=== PATIENT | female | born 1990 | race Caucasian/White ===

== ENCOUNTER 2017-04-28 20:10 | Emergency (ER) | payer SELFPAY ==
[2017-04-28 20:15] VITALS: BP 111/73; BMI 20.5
[2017-04-28] MEDS ORDERED: ZOFRAN TAB 4 MG PO STA (22:03)
--- NOTE | 2017-04-28 22:19 | DR.GENAD ---
HPI - Complaint/Symptoms Chief Complaint Doctors Comments: Patient complains of cold, cough, body aches for the past two days with diarrhea, nasusea, with vomiting today. states she is breast feeding and is wondering if her baby is going to cath the same thing. States her last period was Jul 2016. States she took a Depro shot August 2016 but has had irregular periods with dysuria. States she smokes one pack daily. She denies any unsual foods. States she had diarrhea earlier today but it is improving. Chief Complaint:: PT STATES THAT SHE HAS HAD A BAD COUGH FOR A COUPLE OF DAYS. TODAY SHE BEGAN HAVING CHILLS, FEVER, BODYACHES. COUGHING SO MUCH IT IS MAKING HER VOMIT - Nurses notes reviewed Nurses Notes Review: Yes - Source History Provided: Patient - Mode of Arrival Mode of Arrival: Ambulatory - Timing Onset of Chief Complaint: 04/26/17 Came on: Gradually - Duration Duration: Constant How lon Duration: Days - Location Location: diffuse body aches - Severity Severity: Mild - Modifying Factors Worsens:: nothing Improves:: nothing PMH - PMH Past Medical History: No Past Surgical History: Yes Surgical History: Cholecystectomy, Tonsillectomy - Family History History of Family Medical Conditions: Yes Family Medical History: DC, Hypertension - Social History Do you use any recreational Drugs:: No - infectious screening Have you traveled outside the country in the last 6 months?: No ROS - Review of Systems Constitutional: No Symptoms Reported, Chills, Fever, Malaise, Weakness, Loss of Appetite Eyes: No Symptoms Reported. negative: See HPI, Eye Pain, Blurred Vision, Tearing, Discharge, Photophobia, Diplopia, Other ENTM: No Symptoms Reported, Nose Congestion. negative: See HPI, Ear Pain, Ear Discharge, Pulling on Ears, Hearing Loss, Nose Pain, Nose Discharge, Epistaxis, Mouth Pain, Mouth Swelling, Loose Teeth, Drooling, Throat Pain, Throat Swelling , Ear Foreign Body Respiratoy: No Symptoms Reported, Non-Productive Cough. negative: See HPI, Productive Cough, Moist Cough, Dry Cough, Hacking Cough, Barking Cough, Brassy Cough, Orthopnea, Short of Breath, Stridor, Wheezing, Hemoptysis, Other Cardiovascular: No Symptoms Reported. negative: See HPI, Chest Pain, Edema, Palpitations, Syncope, Cyanosis, Skin Mottling, Other Gastrointestinal/Abdominal: No Symptoms Reported, Abdominal Pain, Diarrhea, Nausea, Vomiting. negative: See HPI, Constipation, Food Intolerance, Other Genitourinary: No Symptoms Reported, Dysuria, Frequency. negative: See HPI, Discharge, Hematuria, Pain, Bleeding, Other Neurological: No Symptoms Reported. negative: See HPI, Anxiety, Depressed, Emotional Problems, Headache, Numbness, Paresthesia, Pre-existing Deficit, Seizure, Tingling, Tremors, Weakness, Dizziness, Problems Walking, Speech Problem, Other Musculoskeletal: No Symptoms Reported Integumentary: No Symptoms Reported. negative: See HPI, Change in Color, Change in Hair/Nails, Dryness, Lesions, Lumps, Rash, Itching, Wound, Bruises, Juandice, Other Hematologic/Lymphatic: No Symptoms Reported Endocrine: No Symptoms Reported. negative: See HPI, Excessive Sweating, Flushing, Intolerance to Cold, Intolerance to Heat, Increased Hunger, Increased Thirst, Increased Urine, Unexplained Weight Gain, Unexplained Weight Loss, Failure to Thrive, Decreased Appetite, Other Psychiatric: No Symptoms Reported. negative: See HPI, Anxiety, Depression, Hallucinations, Excessive crying, Suicidal, Other PE - Vital Signs Vitals: Temperature 97.8 F Pulse Rate 100 Respiratory Rate 18 Blood Pressure [Right Arm] 120/55 Blood Pressure [Left Arm] 113/57 Blood Pressure 111/73 O2 Sat by Pulse Oximetry 98 - General Limitations: No Limitations General Appearance: Alert, In Distress (mild). negative: In No Apparent Distress, Appears Intoxicated, Anxious, Lethargic, Obtunded, Obese, Cachectic, Other - Head Head Exam: Normal Inspection, Atraumatic, Normocephalic - Eyes Eye exam: Normal Appearance, PERRL, EOMI. negative: Scleral Icterus, Conjunctival Injection, Nystagmus, Miosis, Mydrasis, Periorbital Swelling, Periorbital Tenderness, Other - ENT ENT Exam: Normal Exam, Normal Oropharynx, Normal External Ear Exam, Mucous Membranes Moist, TM's Normal Bilaterally External Ear Exam: Normal External Inspection TM/Canal Exam: Bilateral Normal Nose Exam: Normal Nose Exam Mouth Exam: Normal Inspection Throat Exam: Normal Inspection. negative: Tonsillar Erythema, Tonsillomegaly, Tonsillar Exudate, R Peritonsillar Mass, L Peritonsillar Mass, Muffled Voice, Other - Neck Neck Exam: Normal Inspection, Full ROM, Trachea Midline. negative: Tenderness, Meningismus, Lymphadenopathy, Thyromegaly, Other - Chest Chest Inspection: Normal Inspection, Symmetric Chest Wall Rise. negative: Tenderness, Rash, Abscess, Other - Respiratory Respiratory Exam: Normal Lung Sounds Bilat. negative: Accessory Muscle Use, Chest Wall Tenderness, Prolonged Expiratory Phase, Respiratory Distress, Stridor , Other Respiratory Exam: Bilateral Clear to Auscultation - Cardiovascular Cardiovascular Exam: Regular Rate, Normal Rhythm. negative: Bradycardia, Tachycardia, Irregular Rhythm, Normal Heart Sounds, Systolic Murmur, Diastolic Murmur, Rubs, Gallop, Clicks, JVD, +S1, +S2, +S3, +S4, Other - Abdominal Exam Abdominal Exam: Normal Inspection, Normal Bowel Sounds, Soft, Tenderness ( slight suprapubic tenderness). negative: Distention, Guarding, Rebound, Rigidity, Dimnished Bowel Sounds, Hyperactive Bowel Sounds, Hypoactive Bowel Sounds, Organomegaly, Trauma, Incision, Ascites, Mass, Bruit, Pulsatile Mass, Hernia, Other Abdominal Tenderness: Suprapubic, Mild - Extremities Extremities Exam: Normal Inspection, Full ROM, Tenderness, Normal Capillary Refill - Back Back Exam: Normal Inspection, Full ROM. negative: Tenderness, (R) CVA Tenderness, (L) CVA Tenderness, Muscle Spasm, Paraspinal Tenderness, Vertebral Tenderness, Rashes, (R) Sciatic Notch Tenderness, (L) Sciatic Notch Tendern, (R ) Straight Leg Raise, (L) Straight Leg Raise, Other - Neurologic Neurological Exam: Alert, Oriented X3, CN II-XII Intact, Normal Gait, Reflexes Normal - Psychiatric Psychiatric Exam: Normal Affect, Normal Mood - Skin Skin Exam: Warm, Dry, Intact, Normal Color ROR - Labs Reviewed Laboratory Results Reviewed?: Yes (all labs and x-ray results reviewed and discussed with patient) Laboratory: HCG, Qual Negative <10 mIU/mL 04/28/17 22:15 Specimen Type Clean catch urine 04/28/17 22:58 Urine Color Yellow (YELLOW) 04/28/17 22:58 Urine Appearance Clear (CLEAR) 04/28/17 22:58 Urine pH 5.0 (5.0 - 8.0) 04/28/17 22:58 Ur Specific Louann 1.015 (1.000-1.030) 04/28/17 22:58 Urine Protein 1+ (NEGATIVE) 04/28/17 22:58 Urine Glucose (UA) Negative (NEGATIVE) 04/28/17 22:58 Urine Ketones Negative (NEGATIVE) 04/28/17 22:58 Urine Occult Blood Negative (NEGATIVE) 04/28/17 22:58 Urine Nitrite Negative (NEGATIVE) 04/28/17 22:58 Urine Bilirubin 1+ (NEGATIVE) 04/28/17 22:58 Urine Urobilinogen Normal (NORMAL) 04/28/17 22:58 Ur Leukocyte Esterase 1+ (NEGATIVE) 04/28/17 22:58 Urine RBC 0-3 /HPF (NEGATIVE) 04/28/17 22:58 Urine WBC 2-6 /HPF (NEGATIVE) 04/28/17 22:58 Ur Squamous Epith Cells Numerous /HPF (NEGATIVE) 04/28/17 22:58 Urine Bacteria Trace /HPF (NEGATIVE) 04/28/17 22:58 Urine Mucus Moderate /HPF (NEGATIVE) 04/28/17 22:58 Ur Culture Indicated? No/not indicated 04/28/17 22:58 Influenza Type A (PCR) Negative (NEGATIVE) 04/28/17 23:23 Influenza Type B (PCR) Negative (NEGATIVE) 04/28/17 23:23 - Diagnosis Discharge Problem: Gastroenteritis, Bronchitis, Sinusitis - Discharge Plan Disposition: 01 HOME, SELF-CARE Condition: Stable Prescriptions: Cephalexin [KEFLEX CAP 500 MG *] 500 mg PO TID #30 cap Loratadine [Claritin] 10 mg PO DAILY #30 tab Ondansetron HCl [Zofran Tab 4 mg] 4 mg PO Q8H PRN #18 tab PRN Reason: Nausea/Vomiting - Follow ups/Referrals Follow ups/Referrals: CARLA SLATER [Primary Care Provider] - 3 days - Instructions Instructions: Viral Gastroenteritis, Adult, [id number], Sinusitis, Adult, [id number]
[2017-04-28 22:33] LABS: SERUM PREGNANCY TEST, QUAL NEGATIVE <10 mIU/mL
[2017-04-28] MEDS ORDERED: ZOFRAN TAB 4 MG ONE (22:46)
[2017-04-28 23:10] LABS: BILIRUBIN,URINE 1+ (NEGATIVE); BLOOD/HEMOGLOBIN,URINE NEGATIVE (NEGATIVE); GLUCOSE, URINE NEGATIVE (NEGATIVE); KETONES,URINE NEGATIVE (NEGATIVE); LEUKOCYTE ESTERASE ,URINE 1+ (NEGATIVE); NITRITES,URINE NEGATIVE (NEGATIVE); PROTEIN,URINE 1+ (NEGATIVE); UROBILINOGEN,URINE NORMAL (NORMAL)
[2017-04-28] MEDS ORDERED: KEFLEX CAP 500 MG PO ONE ×2 (23:21→23:27)
[2017-04-28 23:22] LABS: APPEARANCE,URINE CLEAR (CLEAR); BACTERIA,URINE TRACE /HPF (NEGATIVE); COLOR,URINE YELLOW (YELLOW); MUCUS,URINE MODERATE /HPF (NEGATIVE); RBC,URINE 0-3 /HPF (NEGATIVE); SQUAMOUS EPITHELIAL CELL,UR NUMEROUS /HPF (NEGATIVE)
== END 2017-04-29 00:26 | disposition home or self-care (01) ==
LOC: ER 20:30
DX: J40 Bronchitis, not specified as acute or chronic (principal); K52.89 Other specified noninfective gastroenteritis and colitis; J32.9 Chronic sinusitis, unspecified
CPT/HCPCS: 36415; 81001; 84703; 87502; 99282; 99283; S0181

== ENCOUNTER 2018-05-08 16:10 | Inpatient (IN) ==
[2018-05-08 16:20] VITALS: BMI 24.8
[2018-05-08 16:22] LABS: BILIRUBIN,URINE NEGATIVE (NEGATIVE); BLOOD/HEMOGLOBIN,URINE 1+ (NEGATIVE); GLUCOSE, URINE NEGATIVE (NEGATIVE); KETONES,URINE NEGATIVE (NEGATIVE); LEUKOCYTE ESTERASE ,URINE 1+ (NEGATIVE); NITRITES,URINE NEGATIVE (NEGATIVE); PROTEIN,URINE NEGATIVE (NEGATIVE); UROBILINOGEN,URINE NORMAL (NORMAL)
[2018-05-08 16:26] LABS: APPEARANCE,URINE SLIGHTLY HAZY (CLEAR); COLOR,URINE YELLOW (YELLOW); RBC,URINE 0-2 /HPF (NONE SEEN); SQUAMOUS EPITHELIAL CELL,UR MANY /HPF (NEGATIVE)
[2018-05-08 16:27] LABS: BACTERIA,URINE 1+ /HPF (NEGATIVE)
[2018-05-08] MEDS ORDERED: DILAUDID INJ IVP PRN (16:35)
[2018-05-08] MEDS ORDERED: PHENERGAN INJ 25 MG IV PRN ×2 (16:35→18:28)
[2018-05-08] MEDS ORDERED: PITOCIN IVP ONE (16:35)
[2018-05-08] MEDS ORDERED: NUBAIN INJ 200 MG VIAL MULTIDOSE IVP PRN (16:35)
[2018-05-08] MEDS ORDERED: D5LR 1L W PITOCIN 10 UNITS/L 10 UNITS/1,000 ML BAG IV PRN (16:35)
[2018-05-08] MEDS ORDERED: REGLAN INJ 10 MG VIAL IVP PRN (16:35)
[2018-05-08] MEDS ORDERED: XYLOCAINE 1 % (PLAIN) ONE (16:48)
[2018-05-08] MEDS ORDERED: NS 100 ML IV 100 ML IV ONE (16:48)
[2018-05-08] MEDS ORDERED: AMPICILLIN VIAL 2 GRAM ONE (16:48)
[2018-05-08] MEDS ORDERED: LR 1000 ML IV 1,000 ML IV ONE (16:48)
[2018-05-08] MEDS ORDERED: FENTANYL INJ 100 mcg ONE (16:48)
[2018-05-08] MEDS ORDERED: XYLOCAINE-MPF 1% ONE (16:49)
[2018-05-08] MEDS ORDERED: NAROPIN EPIDURAL 0.2% + FENTANYL 90MCG 60 ML EPI ONE (16:49)
[2018-05-08] MEDS ORDERED: ADRENALINE CHL INJ ONE (16:49)
[2018-05-08] MEDS ORDERED: D5 1/2 NS 1L W PITOCIN 20 UNITS/L 20 UNITS/1,000 ML BAG IV ONE (16:49)
[2018-05-08] MEDS ORDERED: AMPICILLIN VIAL 2 GRAM 2 G in NS 100 ML IV + SPIKE MINIBAG* 100 ML IV SCH (17:00)
[2018-05-08] MEDS ORDERED: D5 1/2 NS 1000 ML 1,000 ML IV SCH (17:00)
[2018-05-08 17:06] LABS: BASOPHILS % (AUTO) 0.3 % (0.2-1.0); EOSINOPHILS # (AUTO) 0.1 x10^3/uL (0.0-0.2); EOSINOPHILS % (AUTO) 0.7 % (0.9-2.9); HEMATOCRIT 33.8 % (36.0-47.0); HEMOGLOBIN 11.5 g/dL (12.0-16.0); LYMPHOCYTES # (AUTO) 2.1 X10^3/uL (1.3-2.9); LYMPHOCYTES % (AUTO) 16.2 % (21.0-51.0); MEAN CORPUSCULAR HEMOGLOBIN 30.5 pg (27.0-34.0); MEAN CORPUSCULAR HGB CONC 33.9 g/dL (33.0-35.0); MEAN PLATELET VOLUME 8.3 fL (7.4-11.0); MONOCYTES # (AUTO) 0.6 x10^3/uL (0.3-0.8); MONOCYTES % (AUTO) 4.8 % (0.0-13.0); NEUTROPHILS # (AUTO) 10.1 x10^3/uL (2.2-4.8); PLATELET COUNT 200 X10^3/uL (150.0-450.0); RED BLOOD COUNT 3.76 X10^6/uL (3.5-5.4); RED CELL DISTRIBUTION WIDTH 13.3 % (11.6-16.5); WHITE BLOOD COUNT 12.9 X10^3/uL (3.6-10.0)
[2018-05-08 17:09] LABS: BLOOD UREA NITROGEN 5 mg/dL (7-18); CALCIUM 7.9 mg/dL (8.5-10.1); CARBON DIOXIDE 23.7 mmol/L (21-32); CHLORIDE 103 mmol/L (98-107); CREATININE 0.44 mg/dL (0.55-1.02); SODIUM 135 mmol/L (136-145); eGFR NON BLACK RACES > 60 (>60)
[2018-05-08] MEDS ORDERED: D5LR 1L W PITOCIN 10 UNITS/L 10 UNITS/1,000 ML BAG IV ONE (17:28)
--- NOTE | 2018-05-08 18:28 | DR.OB ---
OB Quick Note - Assessment/Plan Assessment/Plan: Delivery Note KNITTING TEACHER 05/08/18 at 6:15pm Patient complete and pushing. Head delivered over intact perineum. No nuchal cord. Nose and mouth bulb suctioned. Body delivered over intact perineum. Cord clamped x 2 and cut. Infant handed to attendant. Cord sent for gases. Placenta delivered spontaneously / intact / 3 vessel cord. No CVX / vaginal / perineal tears. Viable female infant, VTX/OP, wt=5'10" and 9/9, stable to NBN. Mother stable to RR. [id number].
[2018-05-08] MEDS ORDERED: MILK OF MAGNESIA PO PRN (20:14)
[2018-05-08] MEDS ORDERED: DERMOPLAST SPRAY TOP PRN (20:14)
[2018-05-08] MEDS ORDERED: AMBIEN PO PRN (20:14)
[2018-05-08] MEDS ORDERED: ADACEL or BOOSTRIX TDaP VACCINE IM ONE (20:14)
[2018-05-08] MEDS ORDERED: AMPICILLIN VIAL 1 GRAM 1 G in NS 50 ML IV + SPIKE MINIBAG* 50 ML IV SCH (20:37)
[2018-05-08] MEDS: ZANTAC PO SCH (22:13)
[2018-05-08] MEDS: D5 1/2 NS 1000 ML 1,000 ML with PITOCIN 20 UNITS IV SCH ×2 (22:14)
[2018-05-08] MEDS: MOTRIN TAB 800 MG PO PRN (23:34)
[2018-05-09] MEDS: D5 1/2 NS 1000 ML 1,000 ML with PITOCIN 20 UNITS IV SCH ×4 (04:54→11:05)
[2018-05-09 05:16] LABS: HEMATOCRIT 29.1 % (36.0-47.0); HEMOGLOBIN 9.8 g/dL (12.0-16.0)
[2018-05-09] MEDS: PRENATAL PLUS PO SCH (09:30)
[2018-05-09] MEDS: FERROUS GLUCONATE PO SCH ×2 (09:30→17:00)
[2018-05-09] MEDS: ZANTAC PO SCH ×2 (11:02→21:29)
[2018-05-09] MEDS: MOTRIN TAB 800 MG PO PRN (15:40)
[2018-05-10] MEDS: FERROUS GLUCONATE PO SCH (06:12)
[2018-05-10] MEDS ORDERED: DEPO-PROVERA CONTRACEPTIVE INJ IM ONE (07:23)
[2018-05-10 08:31] VITALS: BP 106/37
[2018-05-10] MEDS: PRENATAL PLUS PO SCH (09:00)
[2018-05-10] MEDS: ZANTAC PO SCH (09:01)
== END 2018-05-10 11:05 | disposition home or self-care (01) | DRG 805 ==
LOC: ER 16:10 → LD 16:31 → MED/SURG 20:33
PROVIDERS: ADMIT Specialist; ATTEND Specialist
CPT/HCPCS: 36415; 59409; 76815; 80048; 81001; 85014; 85018; 85025; 86592; 86850; 86900; 86901; 99284; A4216; A4222; S0197; J0171; J0290; J1050; J2590; J3010; J7050; J7120; S5010

== ENCOUNTER 2022-05-20 00:27 | Inpatient (IN) ==
[2022-05-20 01:05] VITALS: BMI 28.3
[2022-05-20 01:17] LABS: BILIRUBIN,URINE NEGATIVE (NEGATIVE); BLOOD/HEMOGLOBIN,URINE 2+ (NEGATIVE); GLUCOSE, URINE NEGATIVE (NEGATIVE); KETONES,URINE NEGATIVE (NEGATIVE); LEUKOCYTE ESTERASE ,URINE 3+ (NEGATIVE); NITRITES,URINE NEGATIVE (NEGATIVE); PROTEIN,URINE NEGATIVE (NEGATIVE); UROBILINOGEN,URINE NORMAL (NORMAL)
[2022-05-20 01:19] LABS: APPEARANCE,URINE SLIGHTLY HAZY (CLEAR); COLOR,URINE YELLOW (YELLOW)
[2022-05-20 01:29] LABS: BACTERIA,URINE TRACE /HPF (NEGATIVE); SQUAMOUS EPITHELIAL CELL,UR FEW /HPF (NEGATIVE); TRANSITIONAL EPI CELLS,URINE FEW /HPF (NEGATIVE)
[2022-05-20 01:58] LABS: EOSINOPHILS # (AUTO) 0.1 x10^3/uL (0.0-0.2); HEMOGLOBIN 8.9 g/dL (12.0-16.0); MEAN CORPUSCULAR HEMOGLOBIN 25.7 pg (27.0-34.0); MEAN CORPUSCULAR HGB CONC 33.3 g/dL (33.0-35.0); MEAN CORPUSCULAR VOLUME 77.1 fL (80.0-100.0); MONOCYTES # (AUTO) 0.6 x10^3/uL (0.3-0.8); RED CELL DISTRIBUTION WIDTH 15.4 % (11.6-16.5); WHITE BLOOD COUNT 11.8 X10^3/uL (3.6-10.0)
[2022-05-20 02:01] LABS: BASOPHILS % (AUTO) 0.4 % (0.2-1.0); EOSINOPHILS % (AUTO) 1.1 % (0.9-2.9); HEMATOCRIT 26.6 % (36.0-47.0); LYMPHOCYTES # (AUTO) 2.4 X10^3/uL (1.3-2.9); LYMPHOCYTES % (AUTO) 20.6 % (21.0-51.0); MEAN PLATELET VOLUME 8.5 fL (7.4-11.0); MONOCYTES % (AUTO) 5.3 % (0.0-13.0); NEUTROPHILS # (AUTO) 8.6 x10^3/uL (2.2-4.8); NEUTROPHILS % (AUTO) 72.6 % (42.0-75.0); RED BLOOD COUNT 3.45 X10^6/uL (3.5-5.4)
[2022-05-20 02:09] LABS: ALANINE AMINOTRANSFERASE 9 Units/L (12-78); ALBUMIN 2.5 g/dL (3.4-5.0); ALKALINE PHOSPHATASE 184 Units/L (46-116); ASPARTATE AMINO TRANSFERASE 12 Units/L (15-37); BLOOD UREA NITROGEN 8 mg/dL (7-18); CALCIUM 8.2 mg/dL (8.5-10.1); CARBON DIOXIDE 24.8 mmol/L (21-32); CHLORIDE 103 mmol/L (98-107); COR CA(FOR HYPOALB) 9.4 mg/dL (8.5-10.1); CREATININE 0.58 mg/dL (0.55-1.02); SODIUM 138 mmol/L (136-145); TOTAL PROTEIN 6.3 g/dL (6.4-8.2); eGFR NON BLACK RACES > 60 (>60)
[2022-05-20] MEDS ORDERED: D5 LR + PITOCIN 10 UNITS/L 10 UNITS/1,000 ML BAG IV PRN (02:16)
[2022-05-20] MEDS ORDERED: PITOCIN IVP ONE (02:16)
[2022-05-20] MEDS ORDERED: PHENERGAN INJ 25 MG IM PRN ×2 (02:16→07:42)
[2022-05-20] MEDS ORDERED: REGLAN INJ 10 MG VIAL IVP PRN (02:16)
[2022-05-20] MEDS ORDERED: ZOFRAN INJ 4 MG VIAL IVP PRN (02:16)
[2022-05-20] MEDS ORDERED: STADOL INJ IVP PRN (02:16)
[2022-05-20] MEDS ORDERED: FENTANYL VIAL INJ 100 mcg ONE (02:39)
[2022-05-20] MEDS ORDERED: LR 1,000 ML IV 1,000 ML IV ONE (02:39)
[2022-05-20] MEDS ORDERED: NAROPIN EPIDURAL 0.2% 100 ML ONE (02:39)
[2022-05-20] MEDS ORDERED: PITOCIN ONE (02:40)
[2022-05-20] MEDS ORDERED: D5 1/2 NS 1,000 mL + PITOCIN 20 UNITS/L IV 20 UNITS/1,000 ML BAG IV ONE (02:41)
[2022-05-20] MEDS ORDERED: BETADINE SOLN ONE (02:41)
[2022-05-20] MEDS ORDERED: D5 1/2 NS 1,000 ML 1,000 ML IV SCH (03:00)
[2022-05-20 03:23] LABS: AMNISURE ROM TEST NO MEMBRANES RUPTURE (NO RUPTURE)
--- NOTE | 2022-05-20 03:47 | DR.OB ---
OB Quick Note - Assessment/Plan Assessment/Plan: L&D 05/20/22 at 3:30am S-No complaint except CTX. O-Afebrile,VSS OYT=925 with good LTV, +accel, no decel. CTX=q 6-7min., strong by palpation CVX=5cm/50%/-1/VTX AROM with clear fluid. IUPC and FSE placed. A-IUP at 38 4/7 weeks in active labor P-Begin pitocin augmentation as necessary Anticipate
[2022-05-20] MEDS ORDERED: MOTRIN TAB 800 MG PO PRN (07:42)
--- NOTE | 2022-05-20 07:42 | DR.OB ---
OB Quick Note - Assessment/Plan Assessment/Plan: Delivery Note MODEL MAKER 05/20/22 at 7:31am Patient complete and pushing. Head delivered over intact perineum. Nose and mouth bulb suctioned. No nuchal cord. Body delivered over intact perineum. Cord clamped x 2 and cut. Infant handed to attendant. Cord sent for gases. Placenta delivered spontaneously / intact / 3 vessel cord. No CVX / vaginal / perineal tears noted. Viable female infant delivered by , VTX/OP, wt=8'1" and 9/9, stable to NBN. Mother stable to RR. [id number].
[2022-05-20] MEDS: D5 1/2 NS 1,000 ML 1,000 ML with PITOCIN 20 UNITS IV SCH ×4 (08:16→16:07)
[2022-05-20] MEDS ORDERED: ADACEL or BOOSTRIX TDaP VACCINE IM ONE (08:39)
[2022-05-20] MEDS ORDERED: MILK OF MAGNESIA PO PRN (08:39)
[2022-05-20] MEDS ORDERED: DERMOPLAST PAIN RELIEF SPRAY TOP PRN (08:39)
[2022-05-20] MEDS ORDERED: AMBIEN PO PRN (08:39)
[2022-05-20] MEDS: PROTONIX TAB 40 MG PO SCH (09:19)
[2022-05-20] MEDS: PRENATAL PLUS PO SCH (09:19)
[2022-05-21] MEDS: D5 1/2 NS 1,000 ML 1,000 ML with PITOCIN 20 UNITS IV SCH ×4 (02:49→08:10)
[2022-05-21 04:02] VITALS: BP 104/51
[2022-05-21 05:13] LABS: HEMOGLOBIN 7.4 g/dL (12.0-16.0)
[2022-05-21 05:15] LABS: HEMATOCRIT 22.7 % (36.0-47.0)
[2022-05-21] MEDS ORDERED: DEPO-PROVERA CONTRACEPTIVE INJ IM ONE (07:24)
[2022-05-21] MEDS: PROTONIX TAB 40 MG PO SCH (09:01)
[2022-05-21] MEDS: PRENATAL PLUS PO SCH (09:01)
== END 2022-05-21 12:10 | disposition home or self-care (01) | DRG 807 ==
LOC: ER 00:44 → LD 02:15 → MED/SURG 08:53
PROVIDERS: ADMIT Specialist; ATTEND Specialist
DX: O99.02 Anemia complicating childbirth; Z37.0 Single live birth; Z3A.38 38 weeks gestation of pregnancy; D50.9 Iron deficiency anemia, unspecified